=== PATIENT | female | born 1975 | race Native Hawaiian/Other Pacific Islander ===

== ENCOUNTER 2017-04-04 07:31 | Outpatient (CLI) | payer OTHER ==
[2017-04-04 08:13] LABS: POTASSIUM 4.2 mmol/L (3.6-5.2); SODIUM 139 mmol/L (136-145)
== END 2017-04-04 08:35 | disposition home or self-care (01) ==
LOC: LABW 07:31
PROVIDERS: Internal Medicine
DX: I25.89 Other forms of chronic ischemic heart disease (principal); E78.00 Pure hypercholesterolemia, unspecified
CPT/HCPCS: 36415; 80053; 80061; 84443

== ENCOUNTER 2018-05-05 07:37 | Outpatient (CLI) | payer BC ==
[2018-05-05 08:15] LABS: PLATELET COUNT 252 K/uL (152-353)
[2018-05-05 09:20] LABS: POTASSIUM 3.7 mmol/L (3.6-5.2)
== END 2018-05-05 21:02 | disposition home or self-care (01) ==
LOC: LABW 07:37
PROVIDERS: Internal Medicine
DX: I10 Essential (primary) hypertension (principal)
CPT/HCPCS: 36415; 80053; 80061; 81000; 84443; 85027

== ENCOUNTER 2019-01-09 07:05 | Outpatient (CLI) | payer BC ==
[2019-01-09 07:41] LABS: POTASSIUM 3.9 mmol/L (3.6-5.2)
[2019-01-09 08:07] LABS: PLATELET COUNT 260 K/uL (152-353)
== END 2019-01-09 19:29 | disposition home or self-care (01) ==
LOC: LABW 07:05
PROVIDERS: Internal Medicine Cardiovascular Disease
DX: E78.5 Hyperlipidemia, unspecified (principal); Z79.899 Other long term (current) drug therapy
CPT/HCPCS: 36415; 80053; 80061; 85027

== ENCOUNTER 2019-07-30 11:53 | Outpatient (CLI) | payer BC | END 2019-07-30 20:44 | disposition home or self-care (01) | LOC: RAD 11:53 | DX: M25.561 Pain in right knee (principal); M25.571 Pain in right ankle and joints of right foot ==

== ENCOUNTER 2019-10-20 08:57 | Outpatient (CLI) | payer BC | END 2019-10-20 19:23 | disposition home or self-care (01) | LOC: RAD 08:57 | DX: M79.604 Pain in right leg (principal); M25.561 Pain in right knee ==

== ENCOUNTER 2020-05-13 15:34 | Outpatient (CLI) | payer BC | END 2020-05-13 20:54 | disposition home or self-care (01) | LOC: LAB 15:34 | DX: N30.00 Acute cystitis without hematuria (principal) | CPT/HCPCS: 87088 ==

== ENCOUNTER 2020-09-02 08:29 | Outpatient (CLI) | payer BC | END 2020-09-02 20:01 | disposition home or self-care (01) | LOC: MAMMO 08:29 | PROVIDERS: ATTEND Obstetrics & Gynecology | DX: Z12.31 Encounter for screening mammogram for malignant neoplasm of breast (principal) ==

== ENCOUNTER 2020-11-29 12:36 | Outpatient (CLI) | payer BC | END 2020-11-29 19:22 | disposition home or self-care (01) | LOC: CT 12:36 | PROVIDERS: ATTEND Obstetrics & Gynecology | DX: R11.0 Nausea (principal); M54.5 Low back pain; N64.4 Mastodynia; R10.2 Pelvic and perineal pain | CPT/HCPCS: 36415; 82565; 84520; Q9963 ==

== ENCOUNTER 2020-12-26 08:06 | Outpatient (CLI) | payer BC ==
[~2020-12-26] VITALS: Ht 165.1 cm; Wt 82.1 kg
== END 2020-12-26 19:17 | disposition home or self-care (01) ==
LOC: DIABINF 08:06
PROVIDERS: ATTEND Internal Medicine Endocrinology, Diabetes & Metabolism
DX: E88.81 Metabolic syndrome and other insulin resistance (principal); I10 Essential (primary) hypertension; E78.2 Mixed hyperlipidemia; I25.10 Atherosclerotic heart disease of native coronary artery without angina pectoris; I73.89 Other specified peripheral vascular diseases; F33.9 Major depressive disorder, recurrent, unspecified; Z71.6 Tobacco abuse counseling; E66.8 Other obesity; Z68.30 Body mass index [BMI] 30.0-30.9, adult; M79.7 Fibromyalgia; K21.9 Gastro-esophageal reflux disease without esophagitis
CPT/HCPCS: 82948; 96365; 96366; 96521; 99204; J1718; J1815

== ENCOUNTER 2020-12-27 07:28 | Outpatient (CLI) | payer BC ==
[~2020-12-27] VITALS: Ht 165.1 cm; Wt 82.1 kg
== END 2020-12-27 19:03 | disposition home or self-care (01) ==
LOC: DIABINF 07:28
PROVIDERS: ATTEND Internal Medicine Endocrinology, Diabetes & Metabolism
DX: E88.81 Metabolic syndrome and other insulin resistance (principal); I10 Essential (primary) hypertension; E78.2 Mixed hyperlipidemia; I25.10 Atherosclerotic heart disease of native coronary artery without angina pectoris; I73.89 Other specified peripheral vascular diseases; F33.8 Other recurrent depressive disorders; Z71.6 Tobacco abuse counseling; E66.8 Other obesity; Z68.30 Body mass index [BMI] 30.0-30.9, adult; M79.7 Fibromyalgia; K21.9 Gastro-esophageal reflux disease without esophagitis
CPT/HCPCS: 82948; 96365; 96366; 96521; 99214; J1718; J1815

== ENCOUNTER 2021-01-02 12:45 | Outpatient (CLI) | payer BC ==
[~2021-01-02] VITALS: Ht 165.1 cm; Wt 82.1 kg
== END 2021-01-02 19:14 | disposition home or self-care (01) ==
LOC: DIABINF 12:45
PROVIDERS: ATTEND Internal Medicine Endocrinology, Diabetes & Metabolism
DX: E88.81 Metabolic syndrome and other insulin resistance (principal); I10 Essential (primary) hypertension; E78.2 Mixed hyperlipidemia; I25.10 Atherosclerotic heart disease of native coronary artery without angina pectoris; I73.89 Other specified peripheral vascular diseases; F33.8 Other recurrent depressive disorders; Z71.6 Tobacco abuse counseling; E66.8 Other obesity; Z68.30 Body mass index [BMI] 30.0-30.9, adult; M79.7 Fibromyalgia; K21.9 Gastro-esophageal reflux disease without esophagitis
CPT/HCPCS: 82948; 96365; 96366; 96521; 99214; J1718; J1815

== ENCOUNTER 2021-01-03 07:47 | Outpatient (CLI) | payer BC ==
[~2021-01-03] VITALS: Ht 165.1 cm; Wt 82.1 kg
== END 2021-01-03 21:05 | disposition home or self-care (01) ==
LOC: DIABINF 07:47
PROVIDERS: ATTEND Internal Medicine Endocrinology, Diabetes & Metabolism
DX: E88.81 Metabolic syndrome and other insulin resistance (principal); I10 Essential (primary) hypertension; E78.2 Mixed hyperlipidemia; I25.10 Atherosclerotic heart disease of native coronary artery without angina pectoris; I73.89 Other specified peripheral vascular diseases; F33.8 Other recurrent depressive disorders; Z71.6 Tobacco abuse counseling; E66.8 Other obesity; Z68.30 Body mass index [BMI] 30.0-30.9, adult; M79.7 Fibromyalgia; K21.9 Gastro-esophageal reflux disease without esophagitis
CPT/HCPCS: 82948; 96365; 96366; 96521; 99214; J1718; J1815

== ENCOUNTER 2021-01-10 12:45 | Outpatient (CLI) | payer BC ==
[~2021-01-10] VITALS: Ht 165.1 cm; Wt 82.1 kg
== END 2021-01-10 21:05 | disposition home or self-care (01) ==
LOC: DIABINF 12:45
PROVIDERS: ATTEND Nurse Practitioner
DX: E88.81 Metabolic syndrome and other insulin resistance (principal); I10 Essential (primary) hypertension; E78.2 Mixed hyperlipidemia; I25.10 Atherosclerotic heart disease of native coronary artery without angina pectoris; I73.89 Other specified peripheral vascular diseases; F33.8 Other recurrent depressive disorders; Z71.6 Tobacco abuse counseling; E66.8 Other obesity; Z68.30 Body mass index [BMI] 30.0-30.9, adult; M79.7 Fibromyalgia; K21.9 Gastro-esophageal reflux disease without esophagitis
CPT/HCPCS: 82948; 96365; 96366; 96521; 99214; J1718; J1815

== ENCOUNTER 2021-01-17 08:02 | Outpatient (CLI) | payer BC ==
[~2021-01-17] VITALS: Ht 165.1 cm; Wt 82.1 kg
== END 2021-01-17 20:13 | disposition home or self-care (01) ==
LOC: DIABINF 08:02
PROVIDERS: ATTEND Nurse Practitioner
DX: E88.81 Metabolic syndrome and other insulin resistance (principal); I10 Essential (primary) hypertension; E78.2 Mixed hyperlipidemia; I25.10 Atherosclerotic heart disease of native coronary artery without angina pectoris; I73.89 Other specified peripheral vascular diseases; F33.8 Other recurrent depressive disorders; Z71.6 Tobacco abuse counseling; E66.8 Other obesity; Z68.30 Body mass index [BMI] 30.0-30.9, adult; M79.7 Fibromyalgia; K21.9 Gastro-esophageal reflux disease without esophagitis
CPT/HCPCS: 82948; 96365; 96366; 96521; 99214; J1718; J1815

== ENCOUNTER 2021-01-24 08:05 | Outpatient (CLI) | payer BC | END 2021-01-24 19:41 | disposition home or self-care (01) | LOC: DIABINF 08:05 | PROVIDERS: ATTEND Internal Medicine Endocrinology, Diabetes & Metabolism | DX: E88.81 Metabolic syndrome and other insulin resistance (principal); I10 Essential (primary) hypertension; E78.2 Mixed hyperlipidemia; I25.10 Atherosclerotic heart disease of native coronary artery without angina pectoris; I73.89 Other specified peripheral vascular diseases; F32.89 Other specified depressive episodes; Z71.6 Tobacco abuse counseling; Z68.30 Body mass index [BMI] 30.0-30.9, adult; E66.8 Other obesity; M79.7 Fibromyalgia; K21.00 Gastro-esophageal reflux disease with esophagitis, without bleeding | CPT/HCPCS: 82948; 96365; 96366; 96521; 99214; J1817 ==

== ENCOUNTER 2021-02-02 12:41 | Outpatient (CLI) | payer BC ==
[~2021-02-02] VITALS: Ht 165.1 cm; Wt 82.1 kg
== END 2021-02-02 23:19 | disposition home or self-care (01) ==
LOC: DIABINF 12:41
PROVIDERS: ATTEND Internal Medicine Endocrinology, Diabetes & Metabolism
DX: E88.81 Metabolic syndrome and other insulin resistance (principal); I10 Essential (primary) hypertension; E78.2 Mixed hyperlipidemia; I25.10 Atherosclerotic heart disease of native coronary artery without angina pectoris; I73.89 Other specified peripheral vascular diseases; F33.8 Other recurrent depressive disorders; Z71.6 Tobacco abuse counseling; E66.8 Other obesity; Z68.30 Body mass index [BMI] 30.0-30.9, adult; M79.7 Fibromyalgia; K21.9 Gastro-esophageal reflux disease without esophagitis
CPT/HCPCS: 82948; 96365; 96366; 96521; J1815; J1817

== ENCOUNTER 2021-02-07 07:37 | Outpatient (CLI) | payer BC ==
[~2021-02-07] VITALS: Ht 165.1 cm; Wt 82.1 kg
== END 2021-02-07 19:31 | disposition home or self-care (01) ==
LOC: DIABINF 07:37
PROVIDERS: ATTEND Nurse Practitioner
DX: E88.81 Metabolic syndrome and other insulin resistance (principal); I10 Essential (primary) hypertension; E78.2 Mixed hyperlipidemia; I25.10 Atherosclerotic heart disease of native coronary artery without angina pectoris; I73.89 Other specified peripheral vascular diseases; F33.8 Other recurrent depressive disorders; Z71.6 Tobacco abuse counseling; E66.8 Other obesity; Z68.30 Body mass index [BMI] 30.0-30.9, adult; M79.7 Fibromyalgia; K21.9 Gastro-esophageal reflux disease without esophagitis
CPT/HCPCS: 82948; 96365; 96366; 96521; J1815; J1817

== ENCOUNTER 2021-02-21 07:54 | Outpatient (CLI) | payer BC ==
[~2021-02-21] VITALS: Ht 165.1 cm; Wt 82.1 kg
== END 2021-02-21 19:09 | disposition home or self-care (01) ==
LOC: DIABINF 07:54
PROVIDERS: ATTEND Internal Medicine Endocrinology, Diabetes & Metabolism
DX: E88.81 Metabolic syndrome and other insulin resistance (principal); I10 Essential (primary) hypertension; E78.2 Mixed hyperlipidemia; I25.10 Atherosclerotic heart disease of native coronary artery without angina pectoris; I73.89 Other specified peripheral vascular diseases; F33.8 Other recurrent depressive disorders; Z71.6 Tobacco abuse counseling; E66.8 Other obesity; Z68.30 Body mass index [BMI] 30.0-30.9, adult; M79.7 Fibromyalgia; K21.9 Gastro-esophageal reflux disease without esophagitis
CPT/HCPCS: 82948; 96365; 96366; 96521; J1815; J1817

== ENCOUNTER 2021-03-01 08:19 | Outpatient (CLI) | payer BC ==
[~2021-03-01] VITALS: Ht 167.6 cm; Wt 82.1 kg
== END 2021-03-01 23:00 | disposition home or self-care (01) ==
LOC: DIABINF 08:19
PROVIDERS: ATTEND Internal Medicine Endocrinology, Diabetes & Metabolism
DX: E88.81 Metabolic syndrome and other insulin resistance (principal); I10 Essential (primary) hypertension; E78.2 Mixed hyperlipidemia; I25.10 Atherosclerotic heart disease of native coronary artery without angina pectoris; I73.89 Other specified peripheral vascular diseases; F33.8 Other recurrent depressive disorders; Z71.6 Tobacco abuse counseling; E66.8 Other obesity; Z68.30 Body mass index [BMI] 30.0-30.9, adult; M79.7 Fibromyalgia; K21.9 Gastro-esophageal reflux disease without esophagitis
CPT/HCPCS: 82948; 96365; 96366; 96521; J1815; J1817